=== PATIENT | male | born 1950 | race African-American/Black ===

== ENCOUNTER 2017-06-25 18:20 | Inpatient (IN) | payer OTHER ==
[2017-06-25] MEDS: morphine 4 MG/ML VIAL IV (22:14)
[2017-06-25] MEDS: SOD CHLORIDE 0.9% 500 ML IV (22:14)
[2017-06-25] MEDS ORDERED: LORAZEPAM 2 MG INJ (22:48)
[2017-06-25 22:54] LABS: ADD MAN DIFF? NO
[2017-06-25] MEDS: IOHEXOL 100 ML (22:55)
[2017-06-25] MEDS: SOD CHLORIDE 0.9% 100 ML (22:55)
[2017-06-25 22:56] LABS: BASOPHILS % 0.3 % (0.0-2.0); EOSINOPHILS % 0.1 % (0.0-7.0); HEMATOCRIT 49.1 % (42.0-52.0); HEMOGLOBIN 17.1 g/dl (14.0-18.0); LYMPHOCYTES # 0.7 10^3/ul (0.8-2.9); LYMPHOCYTES % 5.3 % (15.0-51.0); MEAN CORPUSCULAR HEMOGLOBIN 31.4 pg (29.0-33.0); MEAN CORPUSCULAR HGB CONC 34.8 g/dl (32.0-37.0); MEAN CORPUSCULAR VOLUME 90.3 fl (82.0-101.0); MEAN PLATELET VOLUME 9.4 fl (7.4-10.4); MONOCYTE # 0.3 10^3/ul (0.3-0.9); MONOCYTES % 2.3 % (0.0-11.0); NEUTROPHIL # 12.8 10^3/ul (1.6-7.5); NEUTROPHILS % 91.5 % (39.0-77.0); PLATELET COUNT 396 10^3/UL (140-415); RED BLOOD COUNT 5.44 10^6/ul (4.70-6.10); RED CELL DISTRIBUTION WIDTH 13.5 % (11.5-14.5)
[2017-06-25] MEDS: IOHEXOL 350MG/ML 50 ML BTL (22:56)
[2017-06-25 22:59] LABS: INR 0.93; PARTIAL THROMBOPLASTIN TIME 25.5 Sec (25.0-35.0); PROTIME 12.6 Sec (11.9-14.9)
[2017-06-25 23:02] LABS: D-DIMER 369.22 ng/ml (<460)
[2017-06-25 23:08] LABS: ALANINE AMINOTRANSFERASE 40 IU/L (13-69); ALBUMIN/GLOBULIN RATIO 1.38; ALKALINE PHOSPHATASE 110 IU/L (42-121); ANION GAP 21 (8-16); ASPARTATE AMINO TRANSFERASE 34 IU/L (15-46); BILIRUBIN,INDIRECT 0.7 mg/dl (0-1.1); BILIRUBIN,TOTAL 0.7 mg/dl (0.2-1.3); BLOOD UREA NITROGEN 14 mg/dl (7-20); CALCIUM 9.4 mg/dl (8.4-10.2); CARBON DIOXIDE 24 mmol/L (21-31); CHLORIDE 102 mmol/L (97-110); CREATININE 0.92 mg/dl (0.61-1.24); GLUCOSE 105 mg/dl (70-220); SODIUM 143 mmol/L (135-144); TOTAL PROTEIN 8.6 g/dl (6.1-8.1)
[2017-06-25] MEDS: LORAZEPAM 2 MG INJ IV (23:16)
[2017-06-25 23:21] LABS: TROPONIN-I < 0.012 ng/ml (0.00-0.12)
[2017-06-26] MEDS ORDERED: ACETAMINOPHEN 325 MG TAB PO (00:30)
[2017-06-26] MEDS ORDERED: ONDANSETRON 4 MG INJ IV (00:30)
[2017-06-26] MEDS ORDERED: NACL 0.9% 3 ML SYG IV (01:00)
[2017-06-26] MEDS ORDERED: HYDROCODONE/APAP (5/325) TAB PO (01:00)
[2017-06-26] MEDS: HYDROCODONE/APAP (5/325) TAB PO ×3 (04:20→18:35)
[2017-06-26 06:19] LABS: ADD MAN DIFF? NO
[2017-06-26 06:31] LABS: BASOPHILS % 0.2 % (0.0-2.0); HEMATOCRIT 45.9 % (42.0-52.0); HEMOGLOBIN 16.2 g/dl (14.0-18.0); LYMPHOCYTES # 1.3 10^3/ul (0.8-2.9); LYMPHOCYTES % 9.9 % (15.0-51.0); MEAN CORPUSCULAR HEMOGLOBIN 31.6 pg (29.0-33.0); MEAN CORPUSCULAR HGB CONC 35.3 g/dl (32.0-37.0); MEAN CORPUSCULAR VOLUME 89.6 fl (82.0-101.0); MEAN PLATELET VOLUME 9.3 fl (7.4-10.4); MONOCYTE # 0.7 10^3/ul (0.3-0.9); MONOCYTES % 5.3 % (0.0-11.0); NEUTROPHIL # 11.2 10^3/ul (1.6-7.5); NEUTROPHILS % 84.1 % (39.0-77.0); PLATELET COUNT 366 10^3/UL (140-415); RED BLOOD COUNT 5.12 10^6/ul (4.70-6.10); RED CELL DISTRIBUTION WIDTH 13.6 % (11.5-14.5)
[2017-06-26 06:31] LABS: WHITE BLOOD COUNT 13.3 10^3/ul (4.8-10.8)
[2017-06-26 06:56] LABS: D-DIMER 296.04 ng/ml (<460)
[2017-06-26 07:07] LABS: TROPONIN-I < 0.012 ng/ml (0.00-0.12)
[2017-06-26 07:16] LABS: ANION GAP 21 (8-16); BLOOD UREA NITROGEN 14 mg/dl (7-20); CALCIUM 9.7 mg/dl (8.4-10.2); CARBON DIOXIDE 24 mmol/L (21-31); CHLORIDE 103 mmol/L (97-110); CREATININE 0.89 mg/dl (0.61-1.24); GLUCOSE 98 mg/dl (70-220); POTASSIUM 4.7 mmol/L (3.5-5.1); SODIUM 143 mmol/L (135-144)
[2017-06-26] MEDS: ENOXAPARIN 40 MG/0.4 ML SYG SC ×2 (09:00→16:22)
[2017-06-26 11:00] LABS: ERYTHROCYTE SEDIMENTATION RATE 5 mm/Hr (0-20)
[2017-06-26] MEDS: LISINOPRIL 10 MG TAB PO (14:24)
[2017-06-26] MEDS: DEXTROSE 5%-0.9% NACL 1,000 ML IV (16:20)
[2017-06-26] MEDS: hydrALAzine 20 MG INJ IV ×2 (16:33→20:18)
[2017-06-26] MEDS: ONDANSETRON 4 MG TAB PO (18:35)
[2017-06-26] MEDS: AMLODIPINE 5 MG TAB PO (18:56)
[2017-06-26] MEDS: ACETAMINOPHEN 325 MG TAB PO (20:17)
[2017-06-27] MEDS: ONDANSETRON 4 MG TAB PO ×3 (02:28→18:42)
[2017-06-27] MEDS: HYDROCODONE/APAP (5/325) TAB PO ×2 (02:29→09:13)
[2017-06-27] MEDS: DEXTROSE 5%-0.9% NACL 1,000 ML IV ×2 (02:30→12:14)
[2017-06-27] MEDS: ACETAMINOPHEN 325 MG TAB PO (03:56)
[2017-06-27 06:18] LABS: ADD MAN DIFF? NO
[2017-06-27 06:40] LABS: WHITE BLOOD COUNT 11.9 10^3/ul (4.8-10.8)
[2017-06-27 06:40] LABS: BASOPHILS % 0.3 % (0.0-2.0); EOSINOPHILS # 0.2 10^3/ul (0.0-0.5); EOSINOPHILS % 1.5 % (0.0-7.0); HEMATOCRIT 41.9 % (42.0-52.0); HEMOGLOBIN 14.7 g/dl (14.0-18.0); LYMPHOCYTES # 1.8 10^3/ul (0.8-2.9); LYMPHOCYTES % 14.8 % (15.0-51.0); MEAN CORPUSCULAR HEMOGLOBIN 31.6 pg (29.0-33.0); MEAN CORPUSCULAR HGB CONC 35.1 g/dl (32.0-37.0); MEAN CORPUSCULAR VOLUME 90.1 fl (82.0-101.0); MEAN PLATELET VOLUME 9.3 fl (7.4-10.4); MONOCYTE # 1.3 10^3/ul (0.3-0.9); MONOCYTES % 11.1 % (0.0-11.0); NEUTROPHIL # 8.6 10^3/ul (1.6-7.5); NEUTROPHILS % 71.9 % (39.0-77.0); PLATELET COUNT 323 10^3/UL (140-415); RED BLOOD COUNT 4.65 10^6/ul (4.70-6.10); RED CELL DISTRIBUTION WIDTH 13.6 % (11.5-14.5)
[2017-06-27 07:39] LABS: ALANINE AMINOTRANSFERASE 30 IU/L (13-69); ALBUMIN 3.6 g/dl (3.3-4.9); ALBUMIN/GLOBULIN RATIO 1.33; ALKALINE PHOSPHATASE 74 IU/L (42-121); ANION GAP 14 (8-16); ASPARTATE AMINO TRANSFERASE 37 IU/L (15-46); BILIRUBIN,INDIRECT 0.7 mg/dl (0-1.1); BILIRUBIN,TOTAL 0.7 mg/dl (0.2-1.3); BLOOD UREA NITROGEN 9 mg/dl (7-20); CALCIUM 8.4 mg/dl (8.4-10.2); CARBON DIOXIDE 24 mmol/L (21-31); CHLORIDE 108 mmol/L (97-110); CREATININE 0.87 mg/dl (0.61-1.24); GLUCOSE 112 mg/dl (70-220); POTASSIUM 3.6 mmol/L (3.5-5.1); SODIUM 142 mmol/L (135-144); TOTAL PROTEIN 6.3 g/dl (6.1-8.1)
[2017-06-27] MEDS: LISINOPRIL 10 MG TAB PO (08:07)
[2017-06-27] MEDS: AMLODIPINE 5 MG TAB PO (08:07)
[2017-06-27] MEDS: ENOXAPARIN 40 MG/0.4 ML SYG SC (08:11)
[2017-06-27] MEDS: hydrALAzine 20 MG INJ IV ×3 (12:14→21:09)
[2017-06-27] MEDS: METHYLPREDNISOLONE 40 MG INJ IV (18:42)
[2017-06-27] MEDS: HYDROmorphONE 0.5 MG/0.5 ML SYG IV ×2 (18:43→23:39)
[2017-06-27] MEDS: ONDANSETRON INJ 8 MG in DEXTROSE 5% 50 ML IV (22:54)
[2017-06-27] MEDS: ALPRAZOLAM 1 MG TAB PO (22:59)
[2017-06-28] MEDS: hydrALAzine 20 MG INJ IV ×2 (01:16→20:21)
[2017-06-28] MEDS: HYDROmorphONE 0.5 MG/0.5 ML SYG IV ×3 (07:31→17:00)
[2017-06-28] MEDS: ENOXAPARIN 40 MG/0.4 ML SYG SC (09:00)
[2017-06-28] MEDS: ONDANSETRON INJ 8 MG in DEXTROSE 5% 50 ML IV ×2 (09:40→21:04)
[2017-06-28] MEDS: LISINOPRIL 10 MG TAB PO (09:41)
[2017-06-28] MEDS: METHYLPREDNISOLONE 40 MG INJ IV (09:42)
[2017-06-28] MEDS: AMLODIPINE 5 MG TAB PO (09:42)
[2017-06-28] MEDS: ALPRAZOLAM 0.25 MG TAB PO (21:17)
[2017-06-28] MEDS: oxyCODONE 5 MG TAB PO (21:18)
[2017-06-29] MEDS: AMLODIPINE 10 MG TAB PO ×2 (00:41→09:49)
[2017-06-29] MEDS: ONDANSETRON INJ 8 MG in DEXTROSE 5% 50 ML IV ×2 (08:13→21:58)
[2017-06-29] MEDS: ENOXAPARIN 40 MG/0.4 ML SYG SC (09:00)
[2017-06-29] MEDS: METHYLPREDNISOLONE 40 MG INJ IV (09:48)
[2017-06-29] MEDS: oxyCODONE 5 MG TAB PO ×3 (09:48→20:19)
[2017-06-29] MEDS: LISINOPRIL 10 MG TAB PO (09:49)
[2017-06-29] MEDS: DEXAMETHASONE 4 MG/ML 1 ML INJ IV (18:02)
[2017-06-29] MEDS: PANTOPRAZOLE (EC) 40 MG TAB PO (18:56)
[2017-06-29] MEDS: ALPRAZOLAM 0.25 MG TAB PO (21:43)
[2017-06-30] MEDS: DEXAMETHASONE 4 MG/ML 1 ML INJ IV ×4 (00:04→17:49)
[2017-06-30] MEDS: PANTOPRAZOLE (EC) 40 MG TAB PO (05:31)
[2017-06-30 08:36] LABS: ABNORMAL IP MESSAGE 1; ADD MAN DIFF? NO; HEMATOCRIT 46.3 % (42.0-52.0); HEMOGLOBIN 16.2 g/dl (14.0-18.0); LYMPHOCYTES # 0.6 10^3/ul (0.8-2.9); LYMPHOCYTES % 4.9 % (15.0-51.0); MEAN CORPUSCULAR HEMOGLOBIN 31.5 pg (29.0-33.0); MEAN CORPUSCULAR VOLUME 90.1 fl (82.0-101.0); MEAN PLATELET VOLUME 8.8 fl (7.4-10.4); MONOCYTE # 0.2 10^3/ul (0.3-0.9); MONOCYTES % 1.3 % (0.0-11.0); NEUTROPHIL # 11.1 10^3/ul (1.6-7.5); NEUTROPHILS % 93.3 % (39.0-77.0); PLATELET COUNT 341 10^3/UL (140-415); POSITIVE DIFF @See below; RED BLOOD COUNT 5.14 10^6/ul (4.70-6.10); RED CELL DISTRIBUTION WIDTH 14.1 % (11.5-14.5)
[2017-06-30 08:36] LABS: WHITE BLOOD COUNT 11.9 10^3/ul (4.8-10.8)
[2017-06-30 09:05] LABS: ANION GAP 15 (8-16); BLOOD UREA NITROGEN 21 mg/dl (7-20); CALCIUM 9.5 mg/dl (8.4-10.2); CARBON DIOXIDE 27 mmol/L (21-31); CHLORIDE 103 mmol/L (97-110); CREATININE 0.97 mg/dl (0.61-1.24); GLUCOSE 128 mg/dl (70-220); POTASSIUM 4.3 mmol/L (3.5-5.1); SODIUM 141 mmol/L (135-144)
[2017-06-30] MEDS: LISINOPRIL 10 MG TAB PO (09:20)
[2017-06-30] MEDS: ENOXAPARIN 40 MG/0.4 ML SYG SC (09:21)
[2017-06-30] MEDS: oxyCODONE 5 MG TAB PO ×2 (09:22→21:32)
[2017-06-30] MEDS: AMLODIPINE 10 MG TAB PO (09:24)
[2017-06-30] MEDS: ONDANSETRON INJ 8 MG in DEXTROSE 5% 50 ML IV (10:06)
[2017-06-30] MEDS: ALPRAZOLAM 0.25 MG TAB PO (21:32)
[2017-07-01] MEDS: DEXAMETHASONE 4 MG/ML 1 ML INJ IV ×4 (00:04→20:43)
[2017-07-01] MEDS: CHLORPROMAZINE 25 MG INJ IM ×2 (01:00→06:22)
[2017-07-01] MEDS: METOCLOPRAMIDE 10 MG INJ IV (01:19)
[2017-07-01] MEDS: ONDANSETRON INJ 8 MG in DEXTROSE 5% 50 ML IV ×2 (05:11→20:47)
[2017-07-01] MEDS: PANTOPRAZOLE (EC) 40 MG TAB PO (05:11)
[2017-07-01] MEDS: LISINOPRIL 10 MG TAB PO (08:45)
[2017-07-01] MEDS: AMLODIPINE 10 MG TAB PO (08:45)
[2017-07-01] MEDS: ENOXAPARIN 40 MG/0.4 ML SYG SC (08:46)
[2017-07-01] MEDS: oxyCODONE 5 MG TAB PO (10:54)
[2017-07-01] MEDS: KETOROLAC 15 MG INJ IV (20:47)
[2017-07-01] MEDS: ALPRAZOLAM 0.25 MG TAB PO (21:35)
[2017-07-02] MEDS: DEXAMETHASONE 4 MG/ML 1 ML INJ IV ×2 (02:14→06:00)
[2017-07-02] MEDS: oxyCODONE 5 MG TAB PO ×2 (02:15→12:15)
[2017-07-02] MEDS: PANTOPRAZOLE (EC) 40 MG TAB PO (06:00)
[2017-07-02] MEDS: KETOROLAC 15 MG INJ IV ×2 (07:00→14:40)
[2017-07-02] MEDS: ONDANSETRON INJ 8 MG in DEXTROSE 5% 50 ML IV (07:01)
[2017-07-02] MEDS: LISINOPRIL 10 MG TAB PO (09:10)
[2017-07-02] MEDS: AMLODIPINE 10 MG TAB PO (09:10)
[2017-07-02] MEDS: ENOXAPARIN 40 MG/0.4 ML SYG SC (09:15)
[2017-07-02 10:05] LABS: ADD MAN DIFF? NO
[2017-07-02 10:16] LABS: ABNORMAL IP MESSAGE 1; BASOPHILS % 0.1 % (0.0-2.0); HEMOGLOBIN 16.1 g/dl (14.0-18.0); LYMPHOCYTES # 0.7 10^3/ul (0.8-2.9); LYMPHOCYTES % 3.1 % (15.0-51.0); MEAN CORPUSCULAR HEMOGLOBIN 31.9 pg (29.0-33.0); MEAN CORPUSCULAR VOLUME 91.1 fl (82.0-101.0); MEAN PLATELET VOLUME 9.4 fl (7.4-10.4); MONOCYTE # 0.7 10^3/ul (0.3-0.9); MONOCYTES % 3.1 % (0.0-11.0); NEUTROPHIL # 20.9 10^3/ul (1.6-7.5); NEUTROPHILS % 92.6 % (39.0-77.0); PLATELET COUNT 405 10^3/UL (140-415); POSITIVE DIFF @See below; RED BLOOD COUNT 5.05 10^6/ul (4.70-6.10); RED CELL DISTRIBUTION WIDTH 13.3 % (11.5-14.5)
[2017-07-02 10:16] LABS: WHITE BLOOD COUNT 22.6 10^3/ul (4.8-10.8)
[2017-07-02 11:02] LABS: ANION GAP 18 (8-16); BLOOD UREA NITROGEN 29 mg/dl (7-20); CALCIUM 8.5 mg/dl (8.4-10.2); CARBON DIOXIDE 23 mmol/L (21-31); CHLORIDE 105 mmol/L (97-110); CREATININE 0.97 mg/dl (0.61-1.24); GLUCOSE 146 mg/dl (70-220); MAGNESIUM 2.2 mg/dl (1.7-2.5); PHOSPHORUS 4.2 mg/dl (2.5-4.9); POTASSIUM 4.9 mmol/L (3.5-5.1); SODIUM 141 mmol/L (135-144)
[2017-07-02] MEDS: METOCLOPRAMIDE 10 MG INJ IV (18:37)
[2017-07-02] MEDS: ALPRAZOLAM 0.25 MG TAB PO (21:58)
[2017-07-03] MEDS: KETOROLAC 15 MG INJ IV ×3 (02:30→22:07)
[2017-07-03] MEDS: PANTOPRAZOLE (EC) 40 MG TAB PO (05:40)
[2017-07-03] MEDS: ONDANSETRON INJ 8 MG in DEXTROSE 5% 50 ML IV (06:41)
[2017-07-03] MEDS: oxyCODONE 5 MG TAB PO (07:25)
[2017-07-03] MEDS: AMLODIPINE 10 MG TAB PO (09:11)
[2017-07-03] MEDS: LISINOPRIL 10 MG TAB PO (09:11)
[2017-07-03] MEDS: ENOXAPARIN 40 MG/0.4 ML SYG SC (09:12)
[2017-07-03] MEDS: DOCUSATE SODIUM 100 MG CAP PO (13:57)
[2017-07-03 14:10] LABS: ADD UMIC YES; UR ASCORBIC ACID NEGATIVE (NEGATIVE); UR BACTERIA MANY /HPF (NONE SEEN); UR BILIRUBIN (Dip) NEGATIVE (NEGATIVE); UR BLOOD (Dip) 2+ mg/dL (NEGATIVE); UR CLARITY SLIGHTLY CLOUDY (CLEAR); UR COLOR YELLOW (YELLOW); UR GLUCOSE (Dip) NEGATIVE (NEGATIVE); UR KETONES (Dip) NEGATIVE (NEGATIVE); UR LEUKOCYTE ESTERASE (Dip) 3+ Leu/ul (NEGATIVE); UR NITRITE (Dip) NEGATIVE (NEGATIVE); UR RBC 2 /HPF (0-5); UR SPECIFIC GRAVITY (Dip) 1.004 (1.003-1.030); UR TOTAL PROTEIN (Dip) NEGATIVE (NEGATIVE); UR UROBILINOGEN (Dip) NEGATIVE (NEGATIVE); UR WBC 47 /HPF (0-5)
[2017-07-03] MEDS: ALPRAZOLAM 0.25 MG TAB PO (21:04)
[2017-07-04] MEDS: PANTOPRAZOLE (EC) 40 MG TAB PO (05:46)
[2017-07-04] MEDS: ONDANSETRON INJ 8 MG in DEXTROSE 5% 50 ML IV (08:28)
[2017-07-04] MEDS: ENOXAPARIN 40 MG/0.4 ML SYG SC ×2 (08:29→08:38)
[2017-07-04] MEDS: AMLODIPINE 10 MG TAB PO (08:36)
[2017-07-04] MEDS: LISINOPRIL 10 MG TAB PO (08:37)
[2017-07-04 09:04] LABS: ADD MAN DIFF? NO
[2017-07-04 09:23] LABS: ABNORMAL IP MESSAGE 1; BASOPHILS % 0.1 % (0.0-2.0); EOSINOPHILS # 0.3 10^3/ul (0.0-0.5); HEMATOCRIT 40.7 % (42.0-52.0); HEMOGLOBIN 13.9 g/dl (14.0-18.0); LYMPHOCYTES # 2.5 10^3/ul (0.8-2.9); MEAN CORPUSCULAR HEMOGLOBIN 31.8 pg (29.0-33.0); MEAN CORPUSCULAR HGB CONC 34.2 g/dl (32.0-37.0); MEAN CORPUSCULAR VOLUME 93.1 fl (82.0-101.0); MEAN PLATELET VOLUME 9.4 fl (7.4-10.4); MONOCYTE # 3.5 10^3/ul (0.3-0.9); NEUTROPHIL # 20.5 10^3/ul (1.6-7.5); NEUTROPHILS % 75.5 % (39.0-77.0); PLATELET COUNT 256 10^3/UL (140-415); POSITIVE DIFF @See below; RED BLOOD COUNT 4.37 10^6/ul (4.70-6.10); RED CELL DISTRIBUTION WIDTH 13.4 % (11.5-14.5)
[2017-07-04 09:23] LABS: WHITE BLOOD COUNT 27.2 10^3/ul (4.8-10.8)
[2017-07-04 09:43] LABS: ANION GAP 14 (8-16); BLOOD UREA NITROGEN 20 mg/dl (7-20); CALCIUM 7.9 mg/dl (8.4-10.2); CARBON DIOXIDE 28 mmol/L (21-31); CHLORIDE 105 mmol/L (97-110); CREATININE 1.12 mg/dl (0.61-1.24); GLUCOSE 98 mg/dl (70-220); POTASSIUM 4.5 mmol/L (3.5-5.1); SODIUM 142 mmol/L (135-144)
[2017-07-04] MEDS: oxyCODONE 5 MG TAB PO ×2 (11:24→20:59)
[2017-07-04] MEDS ORDERED: CEFTRIAXONE 2 GM/50 ML (PMX) 50 ML IVPB (16:30)
[2017-07-04] MEDS: LEVOFLOXACIN 750MG/D5W (PMX) 150 ML IVPB (17:20)
[2017-07-04] MEDS: ALPRAZOLAM 0.25 MG TAB PO (20:50)
[2017-07-05] MEDS: PANTOPRAZOLE (EC) 40 MG TAB PO (05:16)
[2017-07-05 06:26] LABS: ADD MAN DIFF? NO
[2017-07-05 06:30] LABS: WHITE BLOOD COUNT 19.6 10^3/ul (4.8-10.8)
[2017-07-05 06:30] LABS: ABNORMAL IP MESSAGE 1; BASOPHILS % 0.1 % (0.0-2.0); EOSINOPHILS # 0.3 10^3/ul (0.0-0.5); EOSINOPHILS % 1.6 % (0.0-7.0); HEMATOCRIT 40.2 % (42.0-52.0); HEMOGLOBIN 14.1 g/dl (14.0-18.0); LYMPHOCYTES # 1.9 10^3/ul (0.8-2.9); LYMPHOCYTES % 9.6 % (15.0-51.0); MEAN CORPUSCULAR HEMOGLOBIN 32.3 pg (29.0-33.0); MEAN CORPUSCULAR HGB CONC 35.1 g/dl (32.0-37.0); MEAN CORPUSCULAR VOLUME 92.2 fl (82.0-101.0); MEAN PLATELET VOLUME 9.6 fl (7.4-10.4); MONOCYTE # 2.2 10^3/ul (0.3-0.9); MONOCYTES % 11.4 % (0.0-11.0); NEUTROPHILS % 76.3 % (39.0-77.0); PLATELET COUNT 272 10^3/UL (140-415); POSITIVE DIFF @See below; RED BLOOD COUNT 4.36 10^6/ul (4.70-6.10); RED CELL DISTRIBUTION WIDTH 13.4 % (11.5-14.5)
[2017-07-05 07:31] LABS: ANION GAP 15 (8-16); BLOOD UREA NITROGEN 16 mg/dl (7-20); CALCIUM 8.2 mg/dl (8.4-10.2); CARBON DIOXIDE 27 mmol/L (21-31); CHLORIDE 102 mmol/L (97-110); CREATININE 1.09 mg/dl (0.61-1.24); GLUCOSE 96 mg/dl (70-220); POTASSIUM 3.9 mmol/L (3.5-5.1); SODIUM 140 mmol/L (135-144)
[2017-07-05] MEDS: ENOXAPARIN 40 MG/0.4 ML SYG SC (09:00)
[2017-07-05] MEDS: AMLODIPINE 10 MG TAB PO (09:07)
[2017-07-05] MEDS: oxyCODONE 5 MG TAB PO ×2 (09:08→22:03)
[2017-07-05] MEDS: LISINOPRIL 10 MG TAB PO (09:09)
[2017-07-05] MEDS: ACETAMINOPHEN 325 MG TAB PO (09:44)
[2017-07-05] MEDS: ONDANSETRON INJ 8 MG in DEXTROSE 5% 50 ML IV (09:44)
[2017-07-05 17:21] LABS: CSF RBC 1000 /uL (0-0); CSF WBC 3 /cmm (0-10)
[2017-07-05 17:22] LABS: GLUCOSE,CSF 70 mg/dl (50-80)
[2017-07-05 17:22] LABS: TOTAL PROTEIN,CSF 47 mg/dl (12-60)
[2017-07-05 17:23] LABS: CSF MN% 31.7 %; CSF PMN% 68.3 %; CSF RBC 174000 /uL (0-0)
[2017-07-05 19:23] LABS: CSF CLARITY CLEAR; CSF VOLUME 3.2 ml; CSF#TUBES REC'D 4
[2017-07-05 19:23] LABS: CSF COLOR COLORLESS
[2017-07-05 19:24] LABS: CSF#TUBE COUNT TUBE#4
[2017-07-05 19:58] LABS: CSF CLARITY BLOODY; CSF COLOR RED; CSF VOLUME 3.2 ml; CSF WBC 104 /cmm (0-10); CSF#TUBE COUNT TUBE#1; CSF#TUBES REC'D 4
[2017-07-05] MEDS: ALPRAZOLAM 0.25 MG TAB PO (20:51)
[2017-07-06] MEDS ORDERED: LEVOFLOXACIN 250 MG TAB PO (06:00)
[2017-07-06] MEDS: LEVOFLOXACIN 750 MG TABLET PO (06:26)
[2017-07-06 06:50] LABS: ADD MAN DIFF? NO
[2017-07-06 06:57] LABS: ABNORMAL IP MESSAGE 1; BASOPHILS % 0.1 % (0.0-2.0); EOSINOPHILS # 0.3 10^3/ul (0.0-0.5); EOSINOPHILS % 2.8 % (0.0-7.0); HEMATOCRIT 43.5 % (42.0-52.0); HEMOGLOBIN 15.2 g/dl (14.0-18.0); LYMPHOCYTES # 1.5 10^3/ul (0.8-2.9); LYMPHOCYTES % 15.4 % (15.0-51.0); MEAN CORPUSCULAR HEMOGLOBIN 31.9 pg (29.0-33.0); MEAN CORPUSCULAR HGB CONC 34.9 g/dl (32.0-37.0); MEAN CORPUSCULAR VOLUME 91.2 fl (82.0-101.0); MEAN PLATELET VOLUME 9.4 fl (7.4-10.4); MONOCYTE # 1.8 10^3/ul (0.3-0.9); MONOCYTES % 18.1 % (0.0-11.0); NEUTROPHIL # 6.2 10^3/ul (1.6-7.5); NEUTROPHILS % 61.6 % (39.0-77.0); PLATELET COUNT 310 10^3/UL (140-415); POSITIVE DIFF @See below; RED BLOOD COUNT 4.77 10^6/ul (4.70-6.10); RED CELL DISTRIBUTION WIDTH 13.2 % (11.5-14.5)
[2017-07-06] MEDS: ONDANSETRON INJ 8 MG in DEXTROSE 5% 50 ML IV ×2 (07:02→12:36)
[2017-07-06 07:31] LABS: ANION GAP 11 (8-16); BLOOD UREA NITROGEN 15 mg/dl (7-20); CALCIUM 8.5 mg/dl (8.4-10.2); CARBON DIOXIDE 29 mmol/L (21-31); CHLORIDE 102 mmol/L (97-110); GLUCOSE 99 mg/dl (70-220); POTASSIUM 4.2 mmol/L (3.5-5.1); SODIUM 138 mmol/L (135-144)
[2017-07-06] MEDS: LISINOPRIL 10 MG TAB PO (08:19)
[2017-07-06] MEDS: ENOXAPARIN 40 MG/0.4 ML SYG SC (08:19)
[2017-07-06] MEDS: AMLODIPINE 10 MG TAB PO (08:20)
[2017-07-06] MEDS: oxyCODONE 5 MG TAB PO ×2 (10:26→23:03)
[2017-07-06] MEDS: ALPRAZOLAM 0.25 MG TAB PO (20:38)
[2017-07-07] MEDS: ONDANSETRON INJ 8 MG in DEXTROSE 5% 50 ML IV ×3 (01:45→18:12)
[2017-07-07] MEDS: LEVOFLOXACIN 750 MG TABLET PO (06:20)
[2017-07-07 07:17] LABS: ADD MAN DIFF? NO
[2017-07-07 07:21] LABS: ABNORMAL IP MESSAGE 1; BASOPHIL # 0.1 10^3/ul (0.0-0.1); BASOPHILS % 0.4 % (0.0-2.0); EOSINOPHILS # 0.4 10^3/ul (0.0-0.5); EOSINOPHILS % 3.4 % (0.0-7.0); HEMATOCRIT 44.5 % (42.0-52.0); HEMOGLOBIN 15.4 g/dl (14.0-18.0); LYMPHOCYTES # 2.6 10^3/ul (0.8-2.9); MEAN CORPUSCULAR HEMOGLOBIN 31.2 pg (29.0-33.0); MEAN CORPUSCULAR HGB CONC 34.6 g/dl (32.0-37.0); MEAN CORPUSCULAR VOLUME 90.1 fl (82.0-101.0); MEAN PLATELET VOLUME 8.8 fl (7.4-10.4); MONOCYTE # 2.3 10^3/ul (0.3-0.9); NEUTROPHIL # 5.8 10^3/ul (1.6-7.5); NEUTROPHILS % 51.2 % (39.0-77.0); PLATELET COUNT 342 10^3/UL (140-415); POSITIVE DIFF @See below; RED BLOOD COUNT 4.94 10^6/ul (4.70-6.10); RED CELL DISTRIBUTION WIDTH 12.9 % (11.5-14.5)
[2017-07-07 07:21] LABS: WHITE BLOOD COUNT 11.3 10^3/ul (4.8-10.8)
[2017-07-07 07:29] LABS: MONOCYTES % 19.9 % (0.0-11.0)
[2017-07-07 07:43] LABS: ANION GAP 12 (8-16); BLOOD UREA NITROGEN 19 mg/dl (7-20); CALCIUM 8.5 mg/dl (8.4-10.2); CARBON DIOXIDE 28 mmol/L (21-31); CHLORIDE 103 mmol/L (97-110); CREATININE 1.18 mg/dl (0.61-1.24); GLUCOSE 95 mg/dl (70-220); POTASSIUM 4.3 mmol/L (3.5-5.1); SODIUM 139 mmol/L (135-144)
[2017-07-07] MEDS: AMLODIPINE 10 MG TAB PO (09:34)
[2017-07-07] MEDS: LISINOPRIL 10 MG TAB PO (09:34)
[2017-07-07] MEDS: ENOXAPARIN 40 MG/0.4 ML SYG SC (09:36)
[2017-07-07] MEDS: oxyCODONE 5 MG TAB PO ×2 (11:05→22:53)
[2017-07-07] MEDS: ALPRAZOLAM 0.25 MG TAB PO (21:42)
[2017-07-08] MEDS: LEVOFLOXACIN 750 MG TABLET PO (05:55)
[2017-07-08] MEDS: ONDANSETRON INJ 8 MG in DEXTROSE 5% 50 ML IV ×2 (06:02→22:12)
[2017-07-08 06:42] LABS: ADD MAN DIFF? NO
[2017-07-08 06:52] LABS: ABNORMAL IP MESSAGE 1; BASOPHILS % 0.4 % (0.0-2.0); EOSINOPHILS # 0.3 10^3/ul (0.0-0.5); EOSINOPHILS % 3.1 % (0.0-7.0); HEMATOCRIT 45.3 % (42.0-52.0); HEMOGLOBIN 15.3 g/dl (14.0-18.0); LYMPHOCYTES # 2.7 10^3/ul (0.8-2.9); LYMPHOCYTES % 24.8 % (15.0-51.0); MEAN CORPUSCULAR HEMOGLOBIN 30.8 pg (29.0-33.0); MEAN CORPUSCULAR HGB CONC 33.8 g/dl (32.0-37.0); MEAN CORPUSCULAR VOLUME 91.3 fl (82.0-101.0); MEAN PLATELET VOLUME 8.8 fl (7.4-10.4); MONOCYTE # 1.7 10^3/ul (0.3-0.9); MONOCYTES % 15.9 % (0.0-11.0); NEUTROPHIL # 5.8 10^3/ul (1.6-7.5); NEUTROPHILS % 52.9 % (39.0-77.0); PLATELET COUNT 377 10^3/UL (140-415); POSITIVE DIFF @See below; RED BLOOD COUNT 4.96 10^6/ul (4.70-6.10); RED CELL DISTRIBUTION WIDTH 12.8 % (11.5-14.5)
[2017-07-08 06:52] LABS: WHITE BLOOD COUNT 10.9 10^3/ul (4.8-10.8)
[2017-07-08 07:23] LABS: ANION GAP 12 (8-16); BLOOD UREA NITROGEN 13 mg/dl (7-20); CALCIUM 8.4 mg/dl (8.4-10.2); CARBON DIOXIDE 29 mmol/L (21-31); CHLORIDE 105 mmol/L (97-110); GLUCOSE 111 mg/dl (70-220); POTASSIUM 4.8 mmol/L (3.5-5.1); SODIUM 141 mmol/L (135-144)
[2017-07-08] MEDS: ENOXAPARIN 40 MG/0.4 ML SYG SC (09:00)
[2017-07-08] MEDS: LISINOPRIL 10 MG TAB PO (10:52)
[2017-07-08] MEDS: AMLODIPINE 10 MG TAB PO (10:52)
[2017-07-08] MEDS: oxyCODONE 5 MG TAB PO ×2 (11:04→23:09)
[2017-07-08] MEDS ORDERED: NORTRIPTYLINE 10 MG CAP PO (21:00)
[2017-07-08] MEDS: ALPRAZOLAM 0.25 MG TAB PO (22:03)
[2017-07-08] MEDS: NORTRIPTYLINE 10 MG CAP PO (22:03)
[2017-07-09] MEDS: ONDANSETRON INJ 8 MG in DEXTROSE 5% 50 ML IV ×3 (04:09→20:59)
[2017-07-09] MEDS: LEVOFLOXACIN 750 MG TABLET PO (04:12)
[2017-07-09] MEDS: ENOXAPARIN 40 MG/0.4 ML SYG SC (09:00)
[2017-07-09] MEDS: LISINOPRIL 10 MG TAB PO (09:11)
[2017-07-09] MEDS: oxyCODONE 5 MG TAB PO ×2 (11:23→23:10)
[2017-07-09] MEDS: ALPRAZOLAM 0.25 MG TAB PO (20:59)
[2017-07-09] MEDS: NORTRIPTYLINE 10 MG CAP PO (21:00)
[2017-07-10] MEDS: LEVOFLOXACIN 750 MG TABLET PO (05:23)
[2017-07-10] MEDS: ONDANSETRON INJ 8 MG in DEXTROSE 5% 50 ML IV ×3 (05:23→17:57)
[2017-07-10] MEDS: ENOXAPARIN 40 MG/0.4 ML SYG SC (09:00)
[2017-07-10] MEDS: LISINOPRIL 10 MG TAB PO (09:50)
[2017-07-10] MEDS: oxyCODONE 5 MG TAB PO ×2 (11:26→20:12)
[2017-07-10] MEDS: VALACYCLOVIR 500 MG TAB PO ×2 (14:32→21:48)
[2017-07-10] MEDS: ALPRAZOLAM 0.25 MG TAB PO (21:48)
[2017-07-11] MEDS: ONDANSETRON INJ 8 MG in DEXTROSE 5% 50 ML IV ×3 (04:14→18:40)
[2017-07-11] MEDS: VALACYCLOVIR 500 MG TAB PO ×2 (08:35→20:58)
[2017-07-11] MEDS: oxyCODONE 5 MG TAB PO ×2 (08:35→16:29)
[2017-07-11] MEDS: LISINOPRIL 10 MG TAB PO (08:35)
[2017-07-11] MEDS: ENOXAPARIN 40 MG/0.4 ML SYG SC (08:38)
[2017-07-11] MEDS: ALPRAZOLAM 0.25 MG TAB PO (20:58)
[2017-07-12] MEDS: oxyCODONE 5 MG TAB PO ×3 (00:32→17:18)
[2017-07-12] MEDS: ONDANSETRON INJ 8 MG in DEXTROSE 5% 50 ML IV ×2 (06:32→17:42)
[2017-07-12] MEDS: ENOXAPARIN 40 MG/0.4 ML SYG SC ×2 (09:00→09:07)
[2017-07-12] MEDS: LISINOPRIL 10 MG TAB PO (09:07)
[2017-07-12] MEDS: VALACYCLOVIR 500 MG TAB PO ×2 (09:07→21:13)
[2017-07-12] MEDS: morphine 2 MG INJ IV (20:18)
[2017-07-12] MEDS: ALPRAZOLAM 0.25 MG TAB PO (21:14)
[2017-07-13] MEDS: ONDANSETRON INJ 8 MG in DEXTROSE 5% 50 ML IV ×2 (06:26→13:39)
[2017-07-13] MEDS: ENOXAPARIN 40 MG/0.4 ML SYG SC (09:00)
[2017-07-13] MEDS: LISINOPRIL 10 MG TAB PO (09:14)
[2017-07-13] MEDS: VALACYCLOVIR 500 MG TAB PO ×2 (09:14→20:57)
[2017-07-13] MEDS: oxyCODONE 5 MG TAB PO (11:32)
[2017-07-13] MEDS: BACLOFEN 10 MG TAB PO (15:47)
[2017-07-13] MEDS: ALPRAZOLAM 0.25 MG TAB PO (20:57)
[2017-07-14] MEDS: BACLOFEN 10 MG TAB PO ×2 (00:16→14:54)
[2017-07-14] MEDS: ONDANSETRON INJ 8 MG in DEXTROSE 5% 50 ML IV ×2 (06:41→18:25)
[2017-07-14] MEDS: ENOXAPARIN 40 MG/0.4 ML SYG SC (09:00)
[2017-07-14] MEDS: VALACYCLOVIR 500 MG TAB PO (09:11)
[2017-07-14] MEDS: LISINOPRIL 10 MG TAB PO (09:12)
[2017-07-14] MEDS: oxyCODONE 5 MG TAB PO ×2 (09:14→18:25)
[2017-07-14] MEDS: ALPRAZOLAM 0.25 MG TAB PO (21:31)
[2017-07-15] MEDS: METOCLOPRAMIDE 10 MG INJ IV (01:49)
[2017-07-15] MEDS: ENOXAPARIN 40 MG/0.4 ML SYG SC (09:00)
[2017-07-15] MEDS: oxyCODONE 5 MG TAB PO ×2 (09:28→17:32)
[2017-07-15] MEDS: LISINOPRIL 10 MG TAB PO (09:28)
[2017-07-15] MEDS: ONDANSETRON INJ 8 MG in DEXTROSE 5% 50 ML IV (09:28)
[2017-07-15] MEDS: BACLOFEN 10 MG TAB PO ×2 (10:30→18:30)
[2017-07-15] MEDS: ONDANSETRON (ODT) 4 MG TAB ODT (17:03)
[2017-07-15] MEDS: ALPRAZOLAM 0.25 MG TAB PO (21:11)
[2017-07-15] MEDS: hydrALAzine 20 MG INJ IV (21:11)
[2017-07-16] MEDS: ENOXAPARIN 40 MG/0.4 ML SYG SC (09:00)
[2017-07-16] MEDS: LISINOPRIL 10 MG TAB PO (09:14)
[2017-07-16] MEDS: oxyCODONE 5 MG TAB PO ×2 (09:29→17:51)
[2017-07-16] MEDS: BACLOFEN 10 MG TAB PO ×2 (10:34→19:00)
[2017-07-16] MEDS: ONDANSETRON (ODT) 4 MG TAB ODT (18:27)
== END 2017-07-16 20:03 | DRG 305 ==
LOC: E/R 18:20 → MS4 06-26 00:22 → PP2 07-05 19:00
PROC: 009U3ZX Drainage of Spinal Canal, Percutaneous Approach, Diagnostic (ICD-10-PCS; principal; 2017-07-05)
PROC: B01B1ZZ Fluoroscopy of Spinal Cord using Low Osmolar Contrast (ICD-10-PCS; 2017-07-05)
DX: I16.0 Hypertensive urgency (principal); N30.90 Cystitis, unspecified without hematuria; N39.0 Urinary tract infection, site not specified; I10 Essential (primary) hypertension; R51 Headache; R07.9 Chest pain, unspecified; B00.9 Herpesviral infection, unspecified; G89.29 Other chronic pain; R20.2 Paresthesia of skin; K58.9 Irritable bowel syndrome, unspecified; R11.0 Nausea; Z84.89 Family history of other specified conditions; R26.9 Unspecified abnormalities of gait and mobility; M50.321 Other cervical disc degeneration at C4-C5 level; M51.26 Other intervertebral disc displacement, lumbar region
CPT/HCPCS: 36415; 70486; 70551; 71010; 71275; 72052; 72110; 72141; 72146; 72148; 75635; 76700; 80048; 80053; 81001; 82945; 83735; 84100; 84157; 84484; 85025; 85378; 85610; 85651; 85730; 87040; 87070; 87086; 87529; 89051; 93005; 96374; 96375; 97003; 97110; 97116; 97163; 97166; 97530; 99285-25; G0378